=== PATIENT | male | born 1985 | race Caucasian/White ===

== ENCOUNTER → 2023-05-18 | Outpatient (CLI) | payer OTHER | LOC: MHCPAIN 08:03 | DX: M47.897 Other spondylosis, lumbosacral region (principal); M54.16 Radiculopathy, lumbar region; M53.3 Sacrococcygeal disorders, not elsewhere classified; M51.36 Other intervertebral disc degeneration, lumbar region | CPT/HCPCS: G0463 ==

== ENCOUNTER → 2023-05-23 | Outpatient (CLI) | payer OTHER ==
[~2023-05-23] MED LIST: Iohexol 300 - 10 ML VIAL ONE; Lidocaine PF 2% (20 MG/ML) 2 ML VIAL ONE
== END ==
LOC: MHCPAIN 08:44
DX: M54.16 Radiculopathy, lumbar region (principal)
CPT/HCPCS: J1040; Q9967

== ENCOUNTER → 2023-06-27 | Outpatient (CLI) | payer OTHER | LOC: MHCPAIN 12:37 | DX: M47.896 Other spondylosis, lumbar region (principal); M54.16 Radiculopathy, lumbar region | CPT/HCPCS: G0463 ==